=== PATIENT | female | born 1995 | race Two or more races ===

== ENCOUNTER 2017-07-03 20:15 | Emergency (ER) | payer BC ==
[2017-07-03 20:35] VITALS: RESP 16; TEMP 98.2
[2017-07-03] MEDS ORDERED: NS 1,000 ML IV ONE (20:57)
[2017-07-03] MEDS ORDERED: ONDANSETRON 4 MG/2 ML VIAL IVP ONE (20:57)
[2017-07-03] MEDS ORDERED: PROMETHAZINE HCL 25 MG/ML INJ IVP ONE (20:57)
--- NOTE | 2017-07-03 21:01 | EDPHY ---
General - History Smoking Status: Never smoked Narrative: CHIEF COMPLAINT: Nausea vomiting HISTORY OF PRESENT ILLNESS: Patient complains of 1 day history of nausea vomiting. This started approximately 10:00 a.m. this morning. It has been constant with 10 episodes of vomiting. It is green, bilious emesis. No bloody emesis. No diarrhea. Some lower abdominal cramping. No pelvic pain. No vaginal pain, bleeding or discharge. No flank pain. No hematuria or dysuria. No fever chills. No headache. No neck pain or stiffness. No trauma or injury. No alleviating factors. No aggravating factors. No other associated complaints or modifying factors. REVIEW OF SYSTEMS: Ten systems reviewed and are negative unless otherwise noted in the HPI PCP: Does not remember their name. A physician in [place] SPECIALISTS: None PAST MEDICAL HISTORY: Glaucoma the left eye LMP 06/26/2017 PAST SURGICAL HISTORY: No abdominal surgeries SOCIAL HISTORY: Nonsmoker. Works in student housing at the [employer] FAMILY HISTORY: Noncontributory EXAMINATION General Appearance: Alert, no distress, IV established Head: normocephalic, atraumatic Eyes: Pupils equal and round, no conjunctival pallor or injection ENT, Mouth: Mucous membranes moist. Airway patent Neck: Normal inspection, supple, non-tender Respiratory: Lungs are clear to auscultation. No wheezing, rhonchi or crackles Cardiovascular: Regular rate and rhythm. No murmur. Gastrointestinal: Abdomen is soft and nondistended. No tympany. No rigidity. No CVA tenderness. Mild tenderness across the middle portion of the abdomen no guarding. Neurological: A&O, nonfocal Skin: Warm and dry, no rash. No petechiae or purpura. Extremities: Nontender, no pedal edema. Symmetric range of motion of the extremities. Psychiatric: Mood and affect normal DIFFERENTIAL DIAGNOSES: Including but not limited to nausea vomiting, dehydration, colitis, appendicitis , diverticulitis, ovarian cyst, ovarian torsion MDM: 8:55 p.m. Nausea vomiting with lower abdominal cramping. Abdominal exam is benign without peritonitis. She describes some pelvic cramping but no pelvic pain. No vaginal complaints or bleeding. Vital signs are within normal limits. Neck is supple and without meningeal signs. No headache. I have ordered IV fluid, laboratory studies. I have also ordered promethazine and IV Zofran. She is in no acute distress. Re-evaluate for the possibility of imaging after laboratory studies returned. 9:45 p.m. Patient re-evaluated. CBC reveals mild leukocytosis. Chemistry pending. She is feeling significantly better after the promethazine in Zofran. 10:45 p.m. Patient re-evaluated. Nausea is starting to return but still no vomiting. She still has no abdominal pain. Chemistry is unremarkable. I have ordered p. o. Reglan and IV Benadryl. She does want to be discharged home. We discussed discharge home with antiemetics. We discussed strict ED precautions for any abdominal pain, fever or intolerance of liquids for 24 hours. We discussed clear liquid diet and slowly advancing as tolerated. She is comfortable with being discharged home and I do feel she is stable to do so. I do not feel she warrants any imaging at this time. Case discussed with Dr. Anderson. (Godfrey Sim) The patient was evaluated and managed by the physician assistant to the director. I have reviewed this chart and I agree with the findings and plan of care as documented , as indicated by my signature. I am the secondary supervising physician. ( Carly Anderson) - Objective Vital Signs: Initial Vital Signs Temperature (C) 36.8 C 07/03/17 20:31 Heart Rate 109 H 07/03/17 20:31 Respiratory Rate 16 07/03/17 20:31 Blood Pressure 110/66 07/03/17 20:31 O2 Sat (%) 97 07/03/17 20:31 O2 Delivery Mode Room Air Allergies/Adverse Reactions: No Known Allergies Allergy (Unverified 07/03/17 20:35) Home Medications: Medication Instructions Recorded Bcp 07/03/17 Ondansetron Odt [Zofran Odt 4 mg 4 mg PO Q6 PRN #12 tab 07/03/17 (*)] Promethazine HCl [Phenergan 25mg 25 mg PO Q8 PRN #12 tab 07/03/17 (*)] Singulair 07/03/17 Laboratory Results: Laboratory Results 07/03/17 20:40 07/03/17 20:40 Medications Given: Discontinued Medications Diphenhydramine HCl (Benadryl Injection) 25 mg IVP EDNOW ONE Stop: 07/03/17 22:49 Last Admin: 07/03/17 22:56 Dose: 25 mg Sodium Chloride (Ns) 1,000 mls @ 0 mls/hr IV EDNOW ONE; Wide Open PRN Reason: Protocol Stop: 07/03/17 20:58 Last Admin: 07/03/17 21:05 Dose: 1,000 mls Metoclopramide HCl (Reglan) 10 mg PO ONCE ONE Stop: 07/03/17 22:49 Last Admin: 07/03/17 23:15 Dose: 10 mg Ondansetron HCl (Zofran) 4 mg IVP EDNOW ONE Stop: 07/03/17 20:58 Last Admin: 07/03/17 21:05 Dose: 4 mg Ondansetron HCl (Zofran Odt 4 Mg Prepack#2) 1 btl TAKEHOME EDNOW ONE Stop: 07/03/17 22:49 Last Admin: 07/03/17 22:55 Dose: 1 btl Promethazine HCl (Phenergan) 12.5 mg IVP EDNOW ONE Stop: 07/03/17 20:58 Last Admin: 07/03/17 21:05 Dose: 12.5 mg Promethazine HCl (Phenergan 25 Mg Prepack #4) 1 btl TAKEHOME EDNOW ONE Stop: 07/03/17 22:49 Last Admin: 07/03/17 22:55 Dose: 1 btl Departure - Departure Disposition: Home, Routine, Self-Care Clinical Impression: Nausea & vomiting Condition: Good Instructions: Acute Nausea and Vomiting (ED) Additional Instructions: 1. Clear liquid diet as tolerated. Advance slowly 2. Nausea medications as prescribed and provided as needed 3. ED precautions as discussed for any abdominal pain, persistent nausea or vomiting, fever Referrals: Marcelo Braun MD [[facility] [place] Primary Care Provider] - As per Instructions Stand Alone Forms: Work Excuse Prescriptions: Ondansetron Odt [Zofran Odt 4 mg (*)] 4 mg PO Q6 PRN #12 tab PRN Reason: Nausea/Vomiting, Use 1st Promethazine HCl [Phenergan 25mg (*)] 25 mg PO Q8 PRN #12 tab PRN Reason: Nausea/Vomiting, Use 1st
[2017-07-03 21:13] LABS: % IMMATURE GRANULYOCYTES 0.3 % (0.0-1.1); ABSOLUTE IMMATURE GRANULOCYTES 0.04 10^3/uL (0.00-0.10); ADD DIFF? NO; ADD MORPH? NO; ADD SCAN? NO; ATYPICAL LYMPHOCYTE FLAG 0 (0-99); FRAGMENT RBC FLAG 0 (0-99); HEMATOCRIT 43.9 % (38.0-47.0); HEMOGLOBIN 15.4 g/dL (12.6-16.3); LEFT SHIFT FLG 0 (0-99); LIPEMIA HEMOLYSIS FLAG 90 (0-99); MEAN CELL HEMOGLOBIN 31.4 pg (27.9-34.1); MEAN CELL HEMOGLOBIN CONCENTR. 35.1 g/dL (32.4-36.7); MEAN CELL VOLUME 89.4 fL (81.5-99.8); MEAN PLATELET VOLUME 9.7 fL (8.7-11.7); PLATELET CLUMPS FLAG 0 (0-99); PLATELET COUNT 289 10^3/uL (150-400); RED BLOOD CELL COUNT 4.91 10^6/uL (4.18-5.33); RED CELL DISTRIBUTION WIDTH 12.5 % (11.5-15.2)
[2017-07-03 21:51] LABS: ALANINE AMINOTRANSFERASE 20 IU/L (9-52); ALBUMIN 4.4 g/dL (3.5-5.0); ALKALINE PHOSPHATASE 49 IU/L (38-126); ANION GAP 16 mEq/L (8-16); ASPARTATE AMINOTRANSFERASE 23 IU/L (14-46); BILIRUBIN-CONJUGATED 0.2 mg/dL (0.0-0.5); BILIRUBIN-UNCONJUGATED 0.8 mg/dL (0.0-1.1); CALCIUM 9.5 mg/dL (8.5-10.4); CARBON DIOXIDE 19 mEq/l (22-31); CHLORIDE 102 mEq/L (97-110); CREATININE 0.7 mg/dL (0.6-1.0); GLOMERULAR FILTRATION RATE > 60; GLUCOSE 100 mg/dL (70-100); POTASSIUM 4.2 mEq/L (3.5-5.2); SODIUM 137 mEq/L (134-144); TOTAL PROTEIN 7.4 g/dL (6.3-8.2)
[2017-07-03] MEDS ORDERED: PROMETHAZINE 25 MG PREPACK #4 BTL TAKEHOME ONE (22:48)
[2017-07-03] MEDS ORDERED: ONDANSETRON 4MG PREPACK#2 BTL TAKEHOME ONE (22:48)
[2017-07-03] MEDS ORDERED: METOCLOPRAMIDE 10 MG TAB PO ONE (22:48)
[2017-07-03 22:58] VITALS: BP 118/80; PULSE 102; O2SAT 96
== END 2017-07-03 23:53 | disposition home or self-care (01) ==
DX: R11.2 Nausea with vomiting, unspecified (principal); E86.9 Volume depletion, unspecified
CPT/HCPCS: 96374; J1200; J2405; J2550